=== PATIENT | female | born 1975 | race Caucasian/White ===

== ENCOUNTER 2020-03-08 10:33 | Emergency (ER) | payer BC, SELFPAY ==
[2020-03-08] VITALS (30 sets, daily range): BP systolic 110–171; BP diastolic 70–94; PULSE 69–121; RESP 10–27; O2SAT 96–100
--- NOTE | ~2020-03-08 | CT_ITS ---
EXAMINATION: CT abdomen pelvis w con EXAM DATE: 03/08/2020 13:15 INDICATION: Epigastric pain . Nausea vomiting diarrhea. TECHNIQUE: Spiral CT of the abdomen and pelvis was performed following intravenous injection of 100 m L Omnipaque 350. Axial, coronal and sagittal images were reviewed. The dose-length product (DLP) fo r this examination was 456.18 mGy-cm. The exposure was tailored according to patient size (auto mA e xposure control), and iterative reconstruction (ASIR) was used as additional dose reduction technique . Comparison is made to prior examination from 02/13/1970. FINDINGS: The liver, spleen, adrenal glands and pancreas are unremarkable. There are surgical clips in the gallbladder fossa. Some biliary duct dilation which is common finding following cholecystecto my. Portal and splenic veins are patent. Kidneys enhance symmetrically. Probable punctate left neph rolithiasis. There is no hydronephrosis. There is IUD which appears to be centrally located within the endometrium, expected position. The bladder is unremarkable. There is no retroperitoneal or pel howard lymphadenopathy. The appendix is normal. The stomach and small bowel are unremarkable. Moderate facet and transverse colonic wall edema. There is colonic fluid. Appearance consistent with colitis or enterocolitis. No f ree intraperitoneal gas. The heart is normal in size. There are no pericardial or pleural effusion s. The lung bases are unremarkable. There are no osteoblastic or osteolytic lesions identified. IMPRESSION: Colitis or enterocolitis. Reviewed, dictated and finalized at location B. [facility] [employer]ACEMENT SERVICES COUNSELOR IMPRESSION: Colitis or enterocolitis.
--- NOTE | 2020-03-08 10:37 | PC.NURSE ---
This pt making conversation with other pt's in waiting room. Pt complaining about the heat in the waiting room. Pt making remarks to other pt's that she is COVID negative. States she is going to be puking a lot .
--- NOTE | 2020-03-08 11:08 | ED.NAVMDI ---
HPI - Nausea/Vomiting/Diarrhea General Chief complaint: Nausea/Vomiting/Diarrhea Stated complaint: Vomiting Time Seen by Provider: 03/08/20 11:08 History of Present Illness HPI Narrative: Tayo limited by poor historian. 44 yo female w/ h/o RA, fibromyalgia presents to the ED for nausea and vomiting. . She reports that she has had nausea and vomiting for the past 5 days. This is associated with Epigastric abdominal pain. No radiation. She has never had this pain before. She was seen at [facility] yesterday and had lab work done. She also tested negative for COVID-19. She presents today because she is not feeling any better. She tried taking zofran today, but could not keep it down. Related Data Home Medications Medication Instructions Recorded Confirmed acetaminophen 325 mg tablet 325 mg PO Q6H PRN 01/14/19 biotin 10,000 mcg capsule mcg PO 01/14/19 diphenhydramine HCl 25 mg capsule 25 mg PO Q6H PRN 01/14/19 erenumab-aooe 70 mg/mL 70 mg SUB-Q MONTHLY 01/14/19 subcutaneous auto-injector glucosam 750 mg-chondroi 100 tablet PO 01/14/19 mg-hyalur 1.65 mg-CF borate 108 mg tablet levocetirizine 5 mg tablet 5 mg PO DAILY 01/14/19 multivitamin 1 tablet PO DAILY 01/14/19 raspberry ketone 100 mg capsule mg PO 01/14/19 promethazine 25 mg tablet 25 mg PO TID PRN 03/23/19 Allergies Allergy/AdvReac Type Severity Reaction Status Date / Time diphenhydramine Allergy Unknown STATED Verified 03/23/19 13:43 LIQUID CAUSES THROAT TO CLOSE, BUT CAN TAKE PILL FORM Review of Systems Review of Systems: All systems reviewed & are unremarkable except as noted in HPI and below Constitutional: Constitutional: Reports fatigue and Denies fever(s) Cardiovascular: Cardiovascular: Denies chest pain Respiratory: Respiratory: Denies dyspnea Gastrointestinal: Gastrointestinal: Reports abdominal pain, Denies diarrhea, Reports nausea and Reports vomiting Genitourinary: Genitourinary: Denies dysuria Musculoskeletal: Musculoskeletal: Denies back pain Neurologic: Reports dizziness PMFSH Past Medical History Medical History (Updated 03/08/20 @ 15:37 by Seferino Wang MD) Fibromyalgia Gallbladder disease H/O nephrolithotomy with removal of calculi Undifferentiated connective tissue disease Surgical History Surgical History H/O shoulder surgery Family History Family History Father Family history of cardiac disorder Social History Social History Smoking status: Never smoker Alcohol intake: current Exam Const: General: no acute distress and alert Orientation/consciousness: patient oriented x3 HENMT: Head: normal to inspection Resp: Effort & Inspection: normal respiratory effort Auscultation: clear to auscultation bilaterally Cardio: Rate: regular rate Rhythm: regular rhythm GI: Inspection: non-distended GI Palp: Yes Soft to palpation, Yes Tenderness to palpation present (GI) (diffusely), No Guarding due to palpation present (GI) and No Rebound tenderness present Skin: General skin exam: normal color Neuro: General: patient oriented x3, moves all extremities, no focal motor deficits and CN's II-XI intact bilaterally Speech: normal speech Extrem: General: normal to inspection Psych: Affect: Anxious affect present Course Vital Signs Vital signs: Vital Signs Pulse Rate 80 03/08/20 10:55 Respiratory Rate 22 H 03/08/20 10:55 Blood Pressure 147/74 H 03/08/20 10:55 Pulse Oximetry 100 03/08/20 10:55 Pulse Rate 79 03/08/20 17:29 Respiratory Rate 18 03/08/20 17:29 Blood Pressure 137/91 H 03/08/20 17:29 Pulse Oximetry 97 03/08/20 17:29 MDM - Nausea/Vomiting/Diarrhea Differential Diagnosis Differential diagnosis: Likely gastroenteritis, dehydration and other (IBS) Medica
--- NOTE | 2020-03-08 11:27 | PC.NURSE ---
upon entering patients room to do assessment patient c/o being in the er for 15 min and that she still didnt have an iv and no one cares how bad i feel . patient requesting water and stating that she is dying from dehydration
[2020-03-08 11:30] LABS: Basophils Percent Auto 0.1 % (0.2-1.2); Hematocrit 40.6 % (37.0-47.0); Hemoglobin 14.1 g/dL (12.0-15.0); Immature Granulocyte Absolute 0.06 K/mm3 (0.00-0.031); Immature Granulocyte Percent A 0.4 % (0-0.5); Lymphocytes Absolute Auto 0.46 K/mm3 (0.9-3.2); Lymphocytes Percent Auto 3.1 % (18.3-44.2); Mean Corpuscular HGB Conc 34.7 g/dl (32-36); Mean Corpuscular Hemoglobin 34.7 pg (26-34); Mean Platelet Volume 9.9 fl (7.4-10.4); Monocytes Absolute Auto 0.4 K/mm3 (0.1-0.6); Monocytes Percent Auto 2.5 % (2.6-8.5); Neutrophils Absolute Auto 14.1 K/mm3 (1.3-6.7); Neutrophils Percent Auto 93.9 % (45.5-73.1); Platelet Count Result 199 k/mm3 (150-375); Red Blood Count 4.06 M/mm3 (4.2-5.4); Red Cell Distribution Width 11.8 % (11.5-14.5)
[2020-03-08 11:42] LABS: Alanine Aminotransferase 26 U/L (4-35); Albumin Level 5.1 g/dL (3.5-5.1); Alkaline Phosphatase 68 U/L (38-126); Anion Gap 13 mmol/L (8-16); Aspartate Amino Transferase 32 U/L (14-36); Bilirubin,Total 0.4 mg/dL (0.2-1.3); Blood Urea Nitrogen 15 mg/dL (7-17); Carbon Dioxide 22 mmol/L (22-30); Chloride 105 mmol/L (98-107); Estimated Glomerular Filt Rate > 60; Glucose 120 mg/dL (65-105); Lipase 33 U/L (23-300); Potassium 3.4 mmol/L (3.4-5.0); Sodium 140 mmol/L (137-145)
[2020-03-08] MEDS: ONDANSETRON INJ 4 MG/2 ML VIAL IV PUSH (12:07)
[2020-03-08] MEDS: SODIUM CHLORIDE 0.9% IV 1,000 ML 999 ML IV CONT (12:08)
[2020-03-08] MEDS: ONDANSETRON INJ 4 MG/2 ML VIAL (12:54)
[2020-03-08 13:14] LABS: Add Urine Microscopic? YES; Appearance Urine Clear (Clear); Bilirubin Urine Negative (Negative); Blood Urine 2+ (Negative); Color Urine Yellow (Yellow); Glucose Urine UA Negative (Negative); Ketones Urine 2+ mg/dL (Negative); Leukocyte Esterase Ur Negative LEU/UL (Negative); Mucus Urine Few /lpf; Nitrate Urine Negative (Negative); Protein Urine 2+ mg/dL (Negative); Specific Grav Ur 1.024 (1.001-1.035); Squamous Epithelial Cell Urine Few /hpf (Few); Urobilinogen Urine Negative mg/dL (<2.0)
[2020-03-08] MEDS: DICYCLOMINE HCL INJ 20 MG/2 ML VIAL IM (14:39)
[2020-03-08] MEDS: metroNIDAZOLE 250 MG TABLET 500 MG PO (14:39)
[2020-03-08] MEDS: CIPROFLOXACIN 500 MG TAB PO (14:39)
== END 2020-03-08 17:31 | disposition home or self-care (01) ==
PROVIDERS: Emergency Provider Emergency Medicine; PCP Internal Medicine
DX: K52.9 Noninfective gastroenteritis and colitis, unspecified (principal); M06.9 Rheumatoid arthritis, unspecified; M79.7 Fibromyalgia
CPT/HCPCS: 36415; 74177; 80053; 81001; 81025; 83690; 85025; 96361; 96365; 96372; 96375; 96376; 99284; A9270; J0131; J0500; J2405; J7030; Q9967

== ENCOUNTER 2021-10-04 13:32 | Outpatient (CLI) | payer OTHER, SELFPAY ==
[2021-10-04 14:20] LABS: Alanine Aminotransferase 38 U/L (6-35); Albumin Level 4.2 g/dL (3.5-5.1); Alkaline Phosphatase 87 U/L (38-126); Anion Gap 8 mmol/L (8-16); Aspartate Amino Transferase 35 U/L (14-36); Bilirubin,Total 0.2 mg/dL (0.2-1.3); Blood Urea Nitrogen 13 mg/dL (7-17); Carbon Dioxide 33 mmol/L (22-30); Chloride 95 mmol/L (98-107); Estimated Glomerular Filt Rate > 60; Glucose 100 mg/dL (65-110); Magnesium 1.7 mg/dL (1.6-2.3); Sodium 136 mmol/L (137-145)
== END 2021-10-04 13:33 | disposition home or self-care (01) ==
PROVIDERS: PCP Internal Medicine
DX: M62.838 Other muscle spasm (principal)
CPT/HCPCS: 36415; 80053; 83735

== ENCOUNTER 2021-10-16 13:12 | Outpatient (CLI) | payer OTHER, SELFPAY ==
[2021-10-16 13:35] LABS: Sodium 134 mmol/L (137-145)
[2021-10-16 13:40] LABS: Anion Gap 6 mmol/L (8-16); Blood Urea Nitrogen 8 mg/dL (7-17); Calcium 9.9 mg/dL (8.4-10.2); Carbon Dioxide 30 mmol/L (22-30); Chloride 98 mmol/L (98-107); Estimated Glomerular Filt Rate > 60; Glucose 93 mg/dL (65-110); Potassium 3.4 mmol/L (3.4-5.0)
== END 2021-10-16 13:13 | disposition home or self-care (01) ==
PROVIDERS: PCP Internal Medicine; Visit Provider Internal Medicine
DX: E87.6 Hypokalemia (principal)
CPT/HCPCS: 36415; 80048

== ENCOUNTER 2022-05-18 08:41 | Outpatient (CLI) | payer OTHER, SELFPAY ==
--- NOTE | ~2022-05-18 | CT_ITS ---
CT of the Abdomen and Pelvis: Indication: Abdominal pain Technique: 2.5 mm axial scans were obtained through the abdomen and pelvis following intravenous adm inistration of 100 cc of Omnipaque 350. Dose reduction technique was used on this scan by utilizing a utomated exposure control and iterative reconstruction technique. The dose-length product (DLP) was 8 04.13 mGy-cm. COMPARISON: 03/08/2020 Findings: Scans through the lung bases are unremarkable. The liver, spleen, pancreas, adrenals and kidneys are within normal limits. Cholecystectomy clips pre sent. No evidence of aortic aneurysm. No lymphadenopathy. Possible wall thickening of the descending and sigmoid colon versus underdistention. No bowel obstruc tion. There is no evidence to suggest acute appendicitis. Images through the pelvis were performed. Urinary bladder unremarkable. IUD in place. No other adnexa l mass seen. Impression: Possible wall thickening of the descending and sigmoid colon versus underdistention. Correlate for in fectious/inflammatory colitis. IUD in place. Reviewed, dictated and finalized at location . Impression: Possible wall thickening of the descending and sigmoid colon versus underdisten tion. Correlate for infectious/inflammatory colitis. IUD in place.
== END 2022-05-18 08:42 ==
PROVIDERS: PCP Internal Medicine; Visit Provider Internal Medicine
DX: R10.9 Unspecified abdominal pain (principal); Z97.5 Presence of (intrauterine) contraceptive device
CPT/HCPCS: 74177; Q9967

== ENCOUNTER 2022-07-02 01:42 | Day surgery (SDC) | payer OTHER, SELFPAY ==
[2022-06-19 15:40] VITALS: BMI 31.8
--- NOTE | 2022-07-01 19:44 | PM.HPGS ---
History of Present Illness History of Present Illness Consent: Risks, benefits, and alternatives have been discussed and questions answered. Patient agrees to proceed with procedure. Chief complaint: neoplasm screening Narrative: Gaby Raymond is a 47 year old female referred for colon cancer screening. Review of Systems Review of Systems: All systems reviewed & are unremarkable except as noted in HPI and below PMFSH Past Medical History Medical History Bilateral hand pain Gallbladder disease H/O nephrolithotomy with removal of calculi Undifferentiated connective tissue disease Vitamin D deficiency Surgical History Surgical History H/O shoulder surgery Family History Family History Father Family history of cardiac disorder Social History Social History Smoking status: Never smoker Alcohol intake: current Substance use: current Substance use type: marijuana Last use: BEDTIME Living arrangements: with family Spiritual care concerns: No Meds Home Medications and Allergies Home Medications Medication Instructions Recorded Confirmed Type biotin 10,000 mcg capsule 10,000 mcg PO DAILY 01/14/19 06/19/22 History multivitamin 1 tablet PO DAILY 01/14/19 06/19/22 History duloxetine 60 mg capsule,delayed 60 mg PO BID #180 caps 04/26/20 06/19/22 Rx release naproxen sodium 220 mg tablet 220 mg PO BID PRN Pain 11/16/20 06/19/22 History (Aleve) acetaminophen 325 mg tablet 650 mg PO Q6H PRN Pain 06/19/22 06/19/22 History Allergies Allergy/AdvReac Type Severity Reaction Status Date / Time diphenhydramine Allergy Unknown STATED Verified 07/02/22 11:04 LIQUID CAUSES THROAT TO CLOSE, BUT CAN TAKE PILL FORM Exam Resp: Auscultation: clear to auscultation bilaterally Cardio: Rate: regular rate Rhythm: regular rhythm GI: GI Palp: Yes Soft to palpation and No Tenderness to palpation present (GI) Assessment and Plan Assessment and plan (1) Colon cancer screening: Code(s): Z12.11 - Encounter for screening for malignant neoplasm of colon Status: Acute Assessment and Plan: Colonoscopy with possible biopsy or polypectomy or cautery or injection of substances.
[2022-07-02 11:06] VITALS: BP 137/79; PULSE 74; RESP 18; TEMP 36.5; O2SAT 99
--- NOTE | 2022-07-02 11:07 | SUR.PREOP ---
Dr Magana aware patient has IUD- no orders for urine test.
[2022-07-02] MEDS: LACTATED RINGERS 1,000 ML 150 ML IV CONT (11:41)
--- NOTE | 2022-07-02 11:45 | P.PNAN_ITS ---
Anes - Initial Pre Proc Eval Procedure: Operation Date: 07/02/22 12:30 Proposed Procedures p Screening Colonoscopy - Yazan Rogers MD Date/Time: 07/02/22 11:45 Surgeon: Yazan Rogers MD Pre Op Diagnosis: neoplasm screening Patient Data Age: 47 Gender: F Height: 1.63 m Weight: 81.6 kg Last Vital Signs Temp 97.7 F 07/02/22 11:06 Pulse 74 07/02/22 11:06 Resp 18 07/02/22 11:06 BP 137/79 07/02/22 11:06 Pulse Ox 99 07/02/22 11:06 O2 Del Method Room Air 07/02/22 11:06 Allergies Allergy/AdvReac Type Severity Reaction Status Date / Time diphenhydramine Allergy Unknown STATED Verified 07/02/22 11:04 LIQUID CAUSES THROAT TO CLOSE, BUT CAN TAKE PILL FORM Home Medications Medication Instructions Recorded Confirmed Type biotin 10,000 mcg capsule 10,000 mcg PO DAILY 01/14/19 06/19/22 History multivitamin 1 tablet PO DAILY 01/14/19 06/19/22 History duloxetine 60 mg capsule,delayed 60 mg PO BID #180 caps 04/26/20 06/19/22 Rx release naproxen sodium 220 mg tablet 220 mg PO BID PRN Pain 11/16/20 06/19/22 History (Aleve) acetaminophen 325 mg tablet 650 mg PO Q6H PRN Pain 06/19/22 06/19/22 History Patient hx anesthesia problems: none Family hx anesthesia problems: none Results Review: All pre-operative results and documents have been reviewed as part of the pre- operative evaluation. [facility] Past Medical History Medical History Bilateral hand pain Gallbladder disease H/O nephrolithotomy with removal of calculi Undifferentiated connective tissue disease Vitamin D deficiency Surgical History Surgical History H/O shoulder surgery Family History Family History Father Family history of cardiac disorder Social History Social History Smoking status: Never smoker Alcohol intake: current Substance use: current Substance use type: marijuana Last use: BEDTIME Living arrangements: with family Spiritual care concerns: No Anes - Eval Final PreProcedure Day of Procedure 07/02/22 11:45 Patient weight: obese Heart: regular rate and rhythm Lungs: clear to auscultation Airway: Mallampati scale class II Neurological: alert and oriented Last oral intake: >/= 8 hours ASA classification: II Emergent: no Anesthetic plan: proceed Anesthesia type and monitoring: general GIVS and standard monitoring Results Review: All pre-operative results and documents have been reviewed as part of the pre- operative evaluation. Informed Consent: The patient's anesthetic plan and its attendant risks and benefits were discussed with the patient/family/POA. Questions were solicited and answers provided to the satisfaction of the patient/family/POA.
[2022-07-02 12:36] VITALS: BP 125/94; PULSE 78; RESP 15; O2SAT 97
[2022-07-02 12:46] VITALS: BP 128/79; PULSE 78; RESP 17; O2SAT 100
[2022-07-02 12:56] VITALS: BP 113/97; PULSE 80; RESP 20; O2SAT 100
[2022-07-02] MEDS: IBUPROFEN 400 MG TABLET 800 MG PO (13:04)
--- NOTE | 2022-07-02 13:06 | SUR.PHASEII ---
Patient requested Ibuprofen before being discharge. Reported this to Dr. Magana, he was okay with an order for one time dose of 800mg of ibuprofen
== END 2022-07-02 13:09 | disposition home or self-care (01) ==
PROVIDERS: PCP Internal Medicine; Visit Provider Internal Medicine Gastroenterology
PROC: 0DJD8ZZ Inspection of Lower Intestinal Tract, Via Natural or Artificial Opening Endoscopic (ICD-10-PCS; CPT 45378; principal; 2022-07-02 12:30)
DX: Z12.11 Encounter for screening for malignant neoplasm of colon (principal); F12.90 Cannabis use, unspecified, uncomplicated; E66.9 Obesity, unspecified; Z68.30 Body mass index [BMI] 30.0-30.9, adult
CPT/HCPCS: 45378; A9270; J2704; J7120

== ENCOUNTER 2022-09-03 13:04 | Outpatient (CLI) | payer OTHER, SELFPAY ==
[2022-09-03 13:25] LABS: Basophils Absolute Auto 0.1 K/mm3 (0.0-0.1); Basophils Percent Auto 0.4 % (0.2-1.2); Eosinophils Absolute Auto 0.2 K/mm3 (0-0.3); Eosinophils Percent Auto 0.9 % (0-4.4); Hematocrit 35.1 % (37.0-47.0); Hemoglobin 11.6 g/dL (12.0-15.0); Immature Granulocyte Absolute 0.13 K/mm3 (0.00-0.031); Immature Granulocyte Percent A 0.7 % (0-0.5); Lymphocytes Absolute Auto 2.43 K/mm3 (0.9-3.2); Lymphocytes Percent Auto 13.3 % (18.3-44.2); Mean Corpuscular Hemoglobin 34.3 pg (26-34); Mean Corpuscular Volume 103.8 fl (80-100); Mean Platelet Volume 9.7 fl (7.4-10.4); Monocytes Percent Auto 5.4 % (2.6-8.5); Neutrophils Absolute Auto 14.5 K/mm3 (1.3-6.7); Neutrophils Percent Auto 79.3 % (45.5-73.1); Platelet Count Result 156 k/mm3 (150-375); Red Blood Count 3.38 M/mm3 (4.2-5.4); White Blood Count 18.3 K/mm3 (4.5-10.0)
[2022-09-03 13:38] LABS: Rheumatoid Factor < 12.0 IU/ML (<12)
[2022-09-03 13:40] LABS: Alanine Aminotransferase 18 U/L (6-35); Albumin Level 4.1 g/dL (3.5-5.1); Alkaline Phosphatase 69 U/L (38-126); Anion Gap 2 mmol/L (8-16); Aspartate Amino Transferase 27 U/L (14-36); Bilirubin,Total 0.2 mg/dL (0.2-1.3); Blood Urea Nitrogen 15 mg/dL (7-17); CRP 0.7 mg/dL (<1.0); Calcium 8.8 mg/dL (8.4-10.2); Carbon Dioxide 30 mmol/L (22-30); Chloride 102 mmol/L (98-107); Estimated Glomerular Filt Rate > 60; Glucose 94 mg/dL (65-110); Potassium 3.8 mmol/L (3.4-5.0); Sodium 134 mmol/L (137-145)
== END 2022-09-03 13:05 | disposition home or self-care (01) ==
PROVIDERS: PCP Internal Medicine
DX: M25.50 Pain in unspecified joint (principal)
CPT/HCPCS: 36415; 80053; 85025; 86140; 86430

== ENCOUNTER → 2022-09-17 13:06 | Outpatient (CLI) | payer OTHER, SELFPAY ==
--- NOTE | ~2022-09-17 | XR_ITS ---
EXAMINATION: XR chest 2V 09/17/2022 13:44 INDICATION: Leukocytosis PROCEDURE: 2 view chest COMPARISON: 06/19/2014 FINDINGS: The lungs are clear. The cardiomediastinal silhouette is within normal limits. There are no pleural effusions. There is no pneumothorax suspected. IMPRESSION: 1: NO ACUTE CARDIOPULMONARY DISEASE. Reviewed, dictated and finalized at location A.
== END ==
PROVIDERS: PCP Internal Medicine
DX: D72.829 Elevated white blood cell count, unspecified (principal)
CPT/HCPCS: 71046

== ENCOUNTER 2022-10-28 15:37 | Emergency (ER) | payer OTHER, SELFPAY ==
--- NOTE | ~2022-10-28 | XR_ITS ---
Clinical Indication: Weakness PA and lateral views of the chest: Comparison: 09/17/2022 Findings: The lungs are clear, without evidence of focal consolidation or pleural effusion. Cardiome diastinal silhouette is within normal limits. Bones and soft tissues are unremarkable. Impression: Normal chest. Reviewed, dictated and finalized at location . Impression: Normal chest.
[2022-10-28 15:38] VITALS: BP 123/62; PULSE 73; RESP 20; TEMP 36.6; O2SAT 100
[2022-10-28 17:36] LABS: Basophils Absolute Auto 0.1 K/mm3 (0.0-0.1); Basophils Percent Auto 0.3 % (0.2-1.2); Eosinophils Absolute Auto 0.1 K/mm3 (0-0.3); Eosinophils Percent Auto 0.4 % (0-4.4); Hematocrit 40.1 % (37.0-47.0); Hemoglobin 13.2 g/dL (12.0-15.0); Immature Granulocyte Absolute 0.15 K/mm3 (0.00-0.031); Immature Granulocyte Percent A 0.6 % (0-0.5); Lymphocytes Absolute Auto 1.75 K/mm3 (0.9-3.2); Lymphocytes Percent Auto 6.8 % (18.3-44.2); Mean Corpuscular HGB Conc 32.9 g/dl (32-36); Mean Corpuscular Hemoglobin 34.6 pg (26-34); Mean Platelet Volume 9.9 fl (7.4-10.4); Monocytes Absolute Auto 1.2 K/mm3 (0.1-0.6); Monocytes Percent Auto 4.5 % (2.6-8.5); Neutrophils Absolute Auto 22.6 K/mm3 (1.3-6.7); Neutrophils Percent Auto 87.4 % (45.5-73.1); Platelet Count Result 183 k/mm3 (150-375); Red Blood Count 3.82 M/mm3 (4.2-5.4); Red Cell Distribution Width 13.5 % (11.5-14.5); White Blood Count 25.8 K/mm3 (4.5-10.0)
[2022-10-28 17:43] LABS: Appearance Urine Clear (Clear); Bacteria Urine None Seen /hpf; Bilirubin Urine Negative (Negative); Color Urine Yellow (Yellow); Glucose Urine UA Negative (Negative); Ketones Urine Negative (Negative); Leukocyte Esterase Ur Trace LEU/UL (Negative); Nitrate Urine Negative (Negative); Non Pathogenic Casts 0-2; Protein Urine Negative (Negative); Specific Grav Ur 1.019 (1.001-1.035); Squamous Epithelial Cell Urine Few /hpf (Few); WBC Urine 0-5 /hpf; pH Urine 7.5 (5.0-9.0)
[2022-10-28 17:48] LABS: Alanine Aminotransferase 26 U/L (6-35); Albumin Level 4.6 g/dL (3.5-5.1); Alkaline Phosphatase 85 U/L (38-126); Anion Gap 12 mmol/L (8-16); Aspartate Amino Transferase 40 U/L (14-36); Bilirubin,Total 0.3 mg/dL (0.2-1.3); Blood Urea Nitrogen 10 mg/dL (7-17); Calcium 8.9 mg/dL (8.4-10.2); Carbon Dioxide 28 mmol/L (22-30); Chloride 98 mmol/L (98-107); Estimated CRCL calculation 80 ml/min; Estimated Glomerular Filt Rate > 60; Glucose 96 mg/dL (65-110); Sodium 138 mmol/L (137-145)
[2022-10-28 17:49] LABS: Add Urine Microscopic? YES
--- NOTE | 2022-10-28 18:01 | ECG_ITS ---
Measurements Intervals [place] Rate: 65 P: 36 [place]: 152 QRS: 62 QRSD: 76 T: 85 QT: 411 QTc: 430 Interpretive Statements SINUS RHYTHM BASELINE ARTIFACT- I, III, AVL NORMAL ECG NO PREVIOUS ECG AVAILABLE FOR COMPARISON Electronically Signed On 10-28-2022 20:56:29 CDT by Thompson Mccartney D.O.
--- NOTE | 2022-10-28 18:02 | ED.GENADULT ---
HPI - General Adult General Chief complaint: Unspecified Stated complaint: unable to move extermities in heat Time Seen by Provider: 10/28/22 17:24 History of Present Illness HPI narrative: 47-year-old female with a history of hypokalemia reports for evaluation via EMS from the [facility] for muscle spasms and concern for dehydration and low potassium. [place] 2 hours when she began to feel lightheaded and dehydrated. She said she started to hyperventilate and had carpopedal spasms which has since resolved. She is now only reporting generalized fatigue and weakness and feels like her muscles are tired and achy. She is also reporting numbness and tingling to all extremities. She denies chest pain or shortness of breath, palpitations, syncope, headache or injury, vision changes, focal weakness, difficulty talking or walking, nausea or vomiting, abdominal pain. Patient states she takes potassium daily but did not take it today. Related Data Home Medications Medication Instructions Recorded Confirmed biotin 10,000 mcg capsule 10,000 mcg PO DAILY 01/14/19 06/19/22 multivitamin 1 tablet PO DAILY 01/14/19 06/19/22 naproxen sodium 220 mg tablet 220 mg PO BID PRN Pain 11/16/20 06/19/22 (Aleve) acetaminophen 325 mg tablet 650 mg PO Q6H PRN Pain 06/19/22 06/19/22 Allergies Allergy/AdvReac Type Severity Reaction Status Date / Time diphenhydramine Allergy Unknown STATED Verified 10/28/22 15:45 LIQUID CAUSES THROAT TO CLOSE, BUT CAN TAKE PILL FORM Review of Systems Review of Systems: CONSTITUTIONAL: Denies fever, chills EYES: Denies visual changes, redness, or discharge. ENT: Denies rhinorrhea, congestion, sore throat, or otalgia. CARDIOVASCULAR: Denies chest pain, palpitations, or edema. RESPIRATORY: Denies cough or dyspnea. GASTROINTESTINAL: Denies abdominal pain, nausea, vomiting, or diarrhea. GENITOURINARY: Denies dysuria or hematuria. SKIN: Denies rash or itching. MUSCULOSKELETAL: See HPI NEUROLOGIC: See HPI PSYCHIATRIC: Denies anxiety or depression. [facility] Past Medical History Medical History Bilateral hand pain Gallbladder disease H/O nephrolithotomy with removal of calculi Undifferentiated connective tissue disease Vitamin D deficiency Surgical History Surgical History H/O shoulder surgery Family History Family History Father Family history of cardiac disorder Social History Social History Smoking status: Never smoker Alcohol intake: current Substance use: current Substance use type: marijuana Last use: BEDTIME Living arrangements: with family Spiritual care concerns: No Exam Narrative: GENERAL: Well-appearing, in no acute distress. Patient resting comfortably in exam bed. She is pleasant and conversational. HEAD: Normocephalic EYES: PERRLA, EOMI ENT: Nares clear. Mucous membranes tacky. Oropharynx without tonsillar hypertrophy exudate or other lesions. NECK: Supple. CHEST: No respiratory distress. Clear to auscultation, no adventitious breath sounds. HEART: Regular rate and rhythm. No murmur heard. Normal peripheral pulses. ABDOMEN: Soft, nontender, normal active bowel sounds. No CVA tenderness EXTREMITIES: Normal range of motion. No edema. SKIN: Warm, dry, no rash. NEURO: No focal deficits. Alert and oriented x3. Cranial nerves II through XII intact. Strength 5/5 in BUE and BLE. Sensation intact throughout. No pronator drift. Normal sveial-up-hjkv. PSYCH: Normal mood and affect. Course Vital Signs Vital signs: Vital Signs Temperature 97.9 F 10/28/22 15:38 Pulse Rate 73 10/28/22 15:38 Respiratory Rate 20 10/28/22 15:38 Blood Pressure 123/62
[2022-10-28] MEDS: SODIUM CHLORIDE 0.9% IV 1,000 ML 999 ML IV CONT ×2 (18:15→19:46)
[2022-10-28] MEDS: POTASSIUM CHLORIDE 20 MEQ ER TABLET 40 MEQ PO (18:27)
[2022-10-28 19:19] LABS: Lactic Acid Reflex 0.7 mmol/L (0.7-2.0); Magnesium 2.1 mg/dL (1.6-2.3); Phosphorus 3.2 mg/dL (2.5-4.5)
[2022-10-28 19:46] LABS: Influenza A QL RT-PCR Negative (Negative); Influenza B QL RT-PCR Negative (Negative); SARS-CoV-2 RNA PCR Negative (Negative)
[2022-10-28 20:23] LABS: CRP 0.7 mg/dL (<1.0)
[2022-10-28 20:55] VITALS: BP 121/76; PULSE 77; RESP 16; O2SAT 100
== END 2022-10-28 20:58 | disposition home or self-care (01) ==
PROVIDERS: Emergency Provider Physician Assistant; PCP Internal Medicine
DX: E87.6 Hypokalemia (principal); F45.8 Other somatoform disorders; E55.9 Vitamin D deficiency, unspecified; K82.9 Disease of gallbladder, unspecified; M35.9 Systemic involvement of connective tissue, unspecified; Z87.442 Personal history of urinary calculi; Z20.822 Contact with and (suspected) exposure to COVID-19
CPT/HCPCS: 36415; 71046; 80053; 81001; 81025; 83605; 83735; 84100; 85025; 86140; 87636; 93005; 96360; 99283; A9270; J7030

== ENCOUNTER 2022-12-18 14:32 | Outpatient (CLI) | payer OTHER, SELFPAY ==
[2022-12-18 14:50] LABS: Hematocrit 37.2 % (37.0-47.0); Hemoglobin 12.6 g/dL (12.0-15.0); Mean Corpuscular HGB Conc 33.9 g/dl (32-36); Mean Corpuscular Hemoglobin 35.1 pg (26-34); Mean Corpuscular Volume 103.6 fl (80-100); Mean Platelet Volume 9.3 fl (7.4-10.4); Platelet Count Result 183 k/mm3 (150-375); Red Blood Count 3.59 M/mm3 (4.2-5.4); Red Cell Distribution Width 12.4 % (11.5-14.5); White Blood Count 18.1 K/mm3 (4.5-10.0)
[2022-12-18 14:59] LABS: Band Neutrophils Percent 3 % (0-6); Lymphocytes Absolute Manual 2.89 K/mm3 (1.1-4.5); Monocytes Percent Manual 5 % (3-9); Neutrophils Absolute Manual 14.29 K/mm3 (1.7-7.2); Neutrophils Percent Manual 76 % (46-73); Platelet Estimate Adequate (Adequate); Schistocytes None Seen (NORMAL); Total Cells Counted 100
[2022-12-18 17:11] LABS: Erythrocyte Sedimentation Rate 17 mm/hr (0-20)
[2022-12-18 17:18] LABS: Alanine Aminotransferase 20 U/L (6-35); Albumin Level 4.7 g/dL (3.5-5.1); Alkaline Phosphatase 86 U/L (38-126); Anion Gap 7 mmol/L (8-16); Aspartate Amino Transferase 31 U/L (14-36); Bilirubin,Total 0.4 mg/dL (0.2-1.3); Blood Urea Nitrogen 14 mg/dL (7-17); CRP 0.6 mg/dL (<1.0); Calcium 9.4 mg/dL (8.4-10.2); Carbon Dioxide 33 mmol/L (22-30); Chloride 97 mmol/L (98-107); Estimated Glomerular Filt Rate > 60; Glucose 89 mg/dL (65-110); Potassium 3.4 mmol/L (3.4-5.0); Sodium 137 mmol/L (137-145)
== END 2022-12-18 14:33 | disposition home or self-care (01) ==
LOC: ANHLAB 14:35
PROVIDERS: PCP Internal Medicine; Visit Provider Internal Medicine Hematology & Oncology
DX: D72.829 Elevated white blood cell count, unspecified (principal)
CPT/HCPCS: 36415; 80053; 85025; 85652; 86140; 88184

== ENCOUNTER 2023-04-17 13:40 | Outpatient (CLI) | payer OTHER, SELFPAY ==
[2023-04-17 13:53] LABS: Basophils Absolute Auto 0.1 K/mm3 (0.0-0.1); Basophils Percent Auto 0.4 % (0.2-1.2); Eosinophils Absolute Auto 0.2 K/mm3 (0-0.3); Eosinophils Percent Auto 1.2 % (0-4.4); Hematocrit 35.6 % (37.0-47.0); Hemoglobin 12.1 g/dL (12.0-15.0); Immature Granulocyte Absolute 0.03 K/mm3 (0.00-0.031); Immature Granulocyte Percent A 0.2 % (0-0.5); Lymphocytes Absolute Auto 2.46 K/mm3 (0.9-3.2); Lymphocytes Percent Auto 18.5 % (18.3-44.2); Mean Corpuscular Hemoglobin 34.2 pg (26-34); Mean Corpuscular Volume 100.6 fl (80-100); Mean Platelet Volume 9.6 fl (7.4-10.4); Monocytes Absolute Auto 0.7 K/mm3 (0.1-0.6); Neutrophils Absolute Auto 9.9 K/mm3 (1.3-6.7); Neutrophils Percent Auto 74.7 % (45.5-73.1); Platelet Count Result 179 k/mm3 (150-375); Red Blood Count 3.54 M/mm3 (4.2-5.4); White Blood Count 13.3 K/mm3 (4.5-10.0)
== END 2023-04-17 13:41 | disposition home or self-care (01) ==
LOC: ANHLAB 13:42
PROVIDERS: PCP Internal Medicine; Visit Provider Internal Medicine Hematology & Oncology
DX: D72.829 Elevated white blood cell count, unspecified (principal)
CPT/HCPCS: 36415; 85025

== ENCOUNTER 2023-04-29 10:01 | Outpatient (CLI) | payer OTHER, SELFPAY ==
[2023-04-29 11:15] LABS: Basophils Absolute Auto 0.1 K/mm3 (0.0-0.1); Basophils Percent Auto 0.5 % (0.2-1.2); Eosinophils Absolute Auto 0.1 K/mm3 (0-0.3); Eosinophils Percent Auto 0.4 % (0-4.4); Hemoglobin 12.4 g/dL (12.0-15.0); Immature Granulocyte Absolute 0.06 K/mm3 (0.00-0.031); Immature Granulocyte Percent A 0.5 % (0-0.5); Lymphocytes Absolute Auto 2.01 K/mm3 (0.9-3.2); Lymphocytes Percent Auto 15.9 % (18.3-44.2); Mean Corpuscular HGB Conc 32.6 g/dl (32-36); Mean Corpuscular Hemoglobin 33.6 pg (26-34); Mean Platelet Volume 9.9 fl (7.4-10.4); Monocytes Absolute Auto 0.5 K/mm3 (0.1-0.6); Monocytes Percent Auto 3.9 % (2.6-8.5); Neutrophils Percent Auto 78.8 % (45.5-73.1); Platelet Count Result 195 k/mm3 (150-375); Red Blood Count 3.69 M/mm3 (4.2-5.4); Red Cell Distribution Width 12.2 % (11.5-14.5); White Blood Count 12.6 K/mm3 (4.5-10.0)
[2023-04-29 11:30] LABS: Rheumatoid Factor < 12.0 IU/ML (<12)
[2023-04-29 11:31] LABS: CRP < 0.5 mg/dL (<1.0); Potassium 3.3 mmol/L (3.4-5.0)
[2023-04-29 12:13] LABS: Iron 89 ug/dL (37-170)
[2023-04-29 12:24] LABS: Percent Iron Saturation 31 % (20-50)
[2023-04-29 12:33] LABS: Folic Acid 12.6 ng/mL (2.76->20)
== END 2023-04-29 10:02 | disposition home or self-care (01) ==
PROVIDERS: PCP Internal Medicine; Visit Provider Nurse Practitioner Adult Health
DX: D72.829 Elevated white blood cell count, unspecified (principal); M25.50 Pain in unspecified joint; E87.6 Hypokalemia
CPT/HCPCS: 36415; 82607; 82728; 82746; 83540; 83550; 84132; 85025; 86140; 86430

== ENCOUNTER 2023-05-20 14:22 | Outpatient (CLI) | payer OTHER, SELFPAY ==
--- NOTE | ~2023-05-20 | US_ITS ---
EXAMINATION: US pelvic complete DATE: 05/20/2023 14:45 INDICATION: Right lower quadrant pain TECHNIQUE: Multiple transabdominal sonographic images of the pelvis were obtained. COMPARISON: CT, 05/18/2022 FINDINGS: The uterus measures 6.8 x 2.3 x 3.4 cm. The endometrial complex measures 4 mm. An IUD appea rs to be in expected position. The right ovary measures 2.3 x 1.9 x 2.4 cm. The left ovary measures 6 .1 x 3.5 x 4.9 cm and contains cysts measuring 3.2 cm and 1.9 cm. There is normal vascular flow in th e ovaries. There is no free fluid in the pelvis. IMPRESSION: 1. No sonographic correlate for the patient's symptoms. Reviewed, dictated and finalized at location F.
== END 2023-05-20 14:23 ==
PROVIDERS: PCP Nurse Practitioner; Visit Provider Nurse Practitioner
DX: R19.09 Other intra-abdominal and pelvic swelling, mass and lump (principal)
CPT/HCPCS: 76856

== ENCOUNTER 2023-09-10 06:07 | Emergency (ER) | payer OTHER, SELFPAY ==
--- NOTE | ~2023-09-10 | XR_ITS ---
Left foot Technique: AP, oblique, and lateral views were obtained. Clinical History: Injury Findings: No acute fracture or dislocation is seen. Osseous alignment is anatomic. Joint spaces are p reserved without erosive or degenerative change. Soft tissues are unremarkable. Impression: Unremarkable left foot radiographs. Reviewed, dictated and finalized at location . Impression: Unremarkable left foot radiographs.
[2023-09-10 06:09] VITALS: BP 124/86; PULSE 86; RESP 15; TEMP 36.4; O2SAT 100
--- NOTE | 2023-09-10 06:51 | ED.GENADULT ---
HPI - General Adult General Chief complaint: Extremity Injury, Lower Stated complaint: left foot pain Time Seen by Provider: 09/10/23 06:42 History of Present Illness HPI narrative: This is a 48-year-old female with history of fibromyalgia presenting with left foot pain. Patient says that she squatted down work and felt a popping sensation at the base of her 2nd toe on the left foot. She has been able ambulate although she does have some pain. She took to the with minimal relief that is her daily pain management for fibromyalgia. Patient denies weakness or loss of sensation Related Data Home Medications Medication Instructions Recorded Confirmed biotin 10,000 mcg capsule 10,000 mcg PO DAILY 01/14/19 06/19/22 multivitamin 1 tablet PO DAILY 01/14/19 06/19/22 naproxen sodium 220 mg tablet 220 mg PO BID PRN Pain 11/16/20 06/19/22 (Aleve) acetaminophen 325 mg tablet 650 mg PO Q6H PRN Pain 06/19/22 06/19/22 Allergies Allergy/AdvReac Type Severity Reaction Status Date / Time diphenhydramine Allergy Unknown STATED Verified 09/10/23 06:32 LIQUID CAUSES THROAT TO CLOSE, BUT CAN TAKE PILL FORM PMFSH Past Medical History Medical History Bilateral hand pain Gallbladder disease H/O nephrolithotomy with removal of calculi Undifferentiated connective tissue disease Vitamin D deficiency Surgical History Surgical History H/O shoulder surgery Family History Family History Father Family history of cardiac disorder Social History Social History Smoking status: Never smoker Alcohol intake: current Substance use: current Substance use type: marijuana Last use: BEDTIME Living arrangements: with family Spiritual care concerns: No Exam Narrative: APPEARANCE: No apparent distress. Head: atraumatic. EYES: EOMI, NOSE: Atraumatic NECK: Trachea midline RESPIRATORY: No increased rate of breathing CARDIOVASCULAR: RRR, ABDOMINAL: Non-distended MUSCULOSKELETAl: Focal exam of the left foot revealed minor swelling over base the 2nd toe on dorsal aspect of foot. No erythema bruising skin changes. Neurovascularly intact. NEURO: Alert. Moving 4/4 extremities SKIN:: Warm, dry. Normal color PSYCHIATRIC: Normal affect Course Vital Signs Vital signs: Vital Signs Temperature 97.6 F 09/10/23 06:09 Pulse Rate 86 09/10/23 06:09 Respiratory Rate 15 09/10/23 06:09 Blood Pressure 124/86 09/10/23 06:09 Pulse Oximetry 100 09/10/23 06:09 Oxygen Delivery Room Air 09/10/23 06:09 Temperature 97.6 F 09/10/23 06:09 Pulse Rate 86 09/10/23 06:09 Respiratory Rate 15 09/10/23 06:09 Blood Pressure 124/86 09/10/23 06:09 Pulse Oximetry 100 09/10/23 06:09 Oxygen Delivery Room Air 09/10/23 06:09 Medical Decision Making MDM Narrative Medical decision making narrative: -Course: 48-year-old female fibromyalgia presenting with pain. X-rays negative fracture. Patient was treated with Tylenol Robaxin and discharged with Podiatry follow-up. Given return precautions. 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
[2023-09-10] MEDS: ACETAMINOPHEN 500 MG TABLET 1000 MG PO (07:14)
[2023-09-10 07:22] VITALS: BP 127/99; PULSE 82; RESP 15; TEMP 36.4; O2SAT 100
== END 2023-09-10 07:25 | disposition home or self-care (01) ==
PROVIDERS: Emergency Provider Emergency Medicine; PCP Nurse Practitioner
DX: M79.672 Pain in left foot (principal)
CPT/HCPCS: 73630; 99283; A9270

== ENCOUNTER 2023-09-13 14:39 | Outpatient (CLI) | payer OTHER, SELFPAY ==
--- NOTE | ~2023-09-13 | MM_ITS ---
EXAMINATION: MM screening bernard BI w edith HISTORY: Screening TECHNIQUE: Craniocaudal and mediolateral oblique 3-D tomosynthesis images were obtained and synthetic 2-D images were generated. CAD analysis was submitted and interpreted. COMPARISON: 11/12/2027 BREAST PARENCHYMAL COMPOSITION: Dense: The breasts are heterogeneously dense, which may obscure small masses FINDINGS: There is global asymmetry centered in the upper outer quadrant of the right breast which villa s progressed since prior examination. The left breast is stable without evidence for malignancy. IMPRESSION: 1. Global asymmetry centered in the upper outer quadrant of the right breast. 2. Additional mammographic views and possible breast ultrasound are recommended. BI-RADS Category 0: Incomplete: Needs additional imaging evaluation. Reviewed, dictated and finalized at location B. IMPRESSION: 1. Global asymmetry centered in the upper outer quadrant of the right breast. 2. Additional mammographic views and possible breast ultrasound are recommended . BI-RADS Category 0: Incomplete: Needs additional imaging evaluation.
== END 2023-09-13 14:40 ==
LOC: MICIMG 14:40
PROVIDERS: PCP Obstetrics & Gynecology Gynecology; Visit Provider Obstetrics & Gynecology Gynecology
DX: Z12.31 Encounter for screening mammogram for malignant neoplasm of breast (principal); R92.8 Other abnormal and inconclusive findings on diagnostic imaging of breast
CPT/HCPCS: 77063; 77067

== ENCOUNTER 2023-10-16 13:01 | Outpatient (CLI) | payer OTHER, SELFPAY ==
[2023-10-16 13:11] LABS: Basophils Absolute Auto 0.1 K/mm3 (0.0-0.1); Basophils Percent Auto 0.5 % (0.2-1.2); Eosinophils Absolute Auto 0.1 K/mm3 (0-0.3); Eosinophils Percent Auto 0.8 % (0-4.4); Hematocrit 37.8 % (37.0-47.0); Hemoglobin 12.6 g/dL (12.0-15.0); Immature Granulocyte Absolute 0.02 K/mm3 (0.00-0.031); Immature Granulocyte Percent A 0.2 % (0-0.5); Lymphocytes Absolute Auto 1.75 K/mm3 (0.9-3.2); Lymphocytes Percent Auto 17.2 % (18.3-44.2); Mean Corpuscular HGB Conc 33.3 g/dl (32-36); Mean Corpuscular Hemoglobin 34.1 pg (26-34); Mean Corpuscular Volume 102.4 fl (80-100); Mean Platelet Volume 9.4 fl (7.4-10.4); Monocytes Absolute Auto 0.6 K/mm3 (0.1-0.6); Monocytes Percent Auto 5.7 % (2.6-8.5); Neutrophils Absolute Auto 7.7 K/mm3 (1.3-6.7); Neutrophils Percent Auto 75.6 % (45.5-73.1); Platelet Count Result 164 k/mm3 (150-375); Red Blood Count 3.69 M/mm3 (4.2-5.4); Red Cell Distribution Width 12.6 % (11.5-14.5); White Blood Count 10.2 K/mm3 (4.5-10.0)
== END 2023-10-16 13:02 | disposition home or self-care (01) ==
LOC: ANHLAB 13:02
PROVIDERS: PCP Obstetrics & Gynecology Gynecology; Visit Provider Internal Medicine Hematology & Oncology
DX: D72.829 Elevated white blood cell count, unspecified (principal)
CPT/HCPCS: 36415; 85025

== ENCOUNTER 2023-11-11 07:53 | Outpatient (CLI) | payer OTHER, SELFPAY ==
--- NOTE | ~2023-11-11 | MM_ITS ---
EXAMINATION: MM diagnostic bernard RT w edith HISTORY: Right breast asymmetry TECHNIQUE: Additional 3-D tomosynthesis images of the right breast were performed and synthetic 2-D i mages were generated. CAD analysis was submitted and interpreted. COMPARISON: 09/13/2023, 11/11/2017 BREAST PARENCHYMAL COMPOSITION:Dense: The breasts are heterogeneously dense, which may obscure small masses. FINDINGS: The area of asymmetry at the upper, outer right breast demonstrates effacement with spot co mpression. No persistent mass lesion or suspicious distortion are identified. No suspicious microcalc ification. IMPRESSION: No mammographic evidence for malignancy. BI-RADS Category 1: Negative Reviewed, dictated and finalized at location .
== END 2023-11-11 07:54 | disposition home or self-care (01) ==
LOC: MICIMG 07:53
PROVIDERS: PCP Obstetrics & Gynecology Gynecology; Visit Provider Obstetrics & Gynecology Gynecology
DX: R92.8 Other abnormal and inconclusive findings on diagnostic imaging of breast (principal)
CPT/HCPCS: 77061; 77065; G0279

== ENCOUNTER 2024-10-20 12:38 | Outpatient (CLI) | payer OTHER, SELFPAY ==
--- OUTSIDE RECORDS SUMMARY | 2024-10-20 12:41 | XMS_ITS | Clinical Summary ---
Author Organization [employer] [address] - [address] [place] [address] Phone Care Team Providers Care Carbon Paper Machine Operator Name Role Phone Pearl Valera MD Primary Care Provider [phone] Allergies Active Allergy Reactions Criticality Noted Date Comments Diphenhydramine Anaphylaxis High 10/07/2016 Throat swells Medications INTRAUTERINE DEVICE, IUD, INTRAUTERINE by Intrauterine route. Active albuterol sulfate 90 mcg/Actuation inhalerIndicati ons:Encounter for routine adult health examination with abnormal findings,Mild intermittent asthma, unspecified whether complicated Take 2 Puffs by inhalation every 6 hours as needed for Shortness of Breath. 18 Gram 3 01/12/20 21 Active magnesium oxide 200 mg magnesium Tablet, ChewableIndicat ions:Chronic constipation Take 100-200 mg by mouth daily. For constipation. 01/16/20 23 Active levocetirizine (Xyzal) 5 mg tablet Take 5 mg by mouth daily at bedtime. Active ergocalciferol (VITAMIN D2) 50,000 unit capsuleIndicati ons:Vitamin D deficiency Take 1 Capsule (50,000 Units) by mouth every 7 days. 12 Capsule 05/20/19 24 Active melatonin 5 mg Tablet Take 10 mg by mouth. Active fluticasone propionate (FLONASE) 50 mcg/spray [place], Suspension nasal inhaler Administer 2 Sprays in each nostril daily. 32 Gram 02/10/20 24 Active potassium chloride (KLOR-CON M20) 20 mEq Extended Release tabletIndicatio ns:Hypokalemia Take 1 Tablet (20 mEq) by mouth daily. 90 Tablet 03/09/19 25 Active cyclobenzaprine (FLEXERIL) 10 mg tabletIndicatio ns:Fibromyalgia Take 1 Tablet (10 mg) by mouth nightly as needed for Discomfort or Pain. 30 Tablet 04/28/19 25 Active famotidine (PEPCID) 20 mg tabletIndicatio ns:Gastroesopha geal reflux disease, unspecified whether esophagitis present Take 1 Tablet (20 mg) by mouth daily. 04/28/19 25 Active triamterene-hyd roCHLOROthiazid e (MAXZIDE 25) 37.5-25 mg tabletIndicatio ns:Edema of lower extremity,Hypok alemia TAKE 1 TABLET BY MOUTH EVERY DAY IN THE MORNING 90 Tablet 1 08/04/19 25 Active DULoxetine (CYMBALTA) 30 mg Capsule, Delayed Release(E.C.)In dications:Fibro myalgia TAKE 1 CAPSULE BY MOUTH EVERY DAY WITH DULOXETINE 60MG CAPSULE 90 Capsule 09/12/19 25 Active DULoxetine (CYMBALTA) 60 mg Capsule, Delayed Release(E.C.)In dications:Fibro myalgia TAKE 1 CAPSULE BY MOUTH DAILY IN THE MORNING. TAKE IN ADDITION TO 30 MG CAPSULE 90 Capsule 09/22/19 25 Active DULoxetine (CYMBALTA) 60 mg Capsule, Delayed Release(E.C.)In dications:Fibro myalgia Take 1 Capsule (60 mg) by mouth daily in the morning. Take in addition to 30 mg tablet. 90 Capsule 06/23/19 25 2024 Discontinued Active Problems Problem Noted Date Diagnosed Date Leukocytosis (leucocytosis) 09/14/2022 Amenorrhea 08/20/2022 Disorder of skin 08/20/2022 Asthma 07/09/2022 Gastroesophageal reflux disease 07/09/2022 Insomnia 07/09/2022 Fibromyalgia 07/09/2022 Hypokalemia 09/26/2021 Essential hypertension 08/15/2021 Chronic constipation 07/12/2021 Edema of lower extremity 07/12/2021 Resolved Problems Problem Noted Date Diagnosed Date Resolved Date Pain in wrist 08/20/2022 01/15/2023 COVID-19 09/26/2021 09/13/2022 Spasm of muscle 09/22/2021 11/06/2022 Edema 08/15/2021 09/13/2022 Encounters Date Type Department Care Team Description 10/19/2024 Orders Only [facility] - [facility] [address] [place] [id number] Juan A Ly MD Leukocytosis, unspecified type (Primary Dx) 10/06/2024 External Device Data STL ABSTRACTION Provider, Abstract 09/21/2024 Refill [facility] [employer] [place] [address] [place] [address] Zakia Charles, ANP Fibromyalgia 09/11/2024 Refill [facility] [employer] [facility] [address] [place] [address] Pearl Valera MD Fibromyalgia 09/09/2024 External Device Data STL ABSTRACTION Provider, Abstract 09/09/2024 External Device Data STL ABSTRACTION Provider, Abstract 08/18/2024 External Device Data STL ABSTRACTION Provider, Abstract 08/12/2024 External Device Data STL ABSTRACTION Provider, Abstract 08/03/2024 Refill [facility] [employer] [address] [place] [address] Pearl Valera MD Edema of lower extremity; Hypokalemia from Last 3 Months Immunizations Immunization Administration Dates Next Due (ADACEL/BOOSTRIX)(10 YR UP) TDAP VACCINE, 0.5ML, IM 10/03/2021 (PFIZER)(12 YR UP) COVID-19 VACCINE - EMERGENCY USE AUTHORIZATION, MRNA, [id number](PF) 30 MCG/0.3 ML IM SUSP 12/23/2020 Family History Medical History Relation Name Comments Heart defect Father Lung Cancer Maternal Grandfather Stwart Lung Cancer Maternal Grandmother Blanca Aneurysm Mother Cancer Paternal Grandfather Shay Heart Disease Paternal Grandmother Fara Mariaelena Kidney Disease Paternal Grandmother Fara Rheumatoid Arthritis Sister SLE Sister No Known Problems Son Relation Name Status Comments Father Alive Maternal Grandfather Stwart Maternal Grandmother Blanca Mother Alive Paternal Grandfather Shay Paternal Grandmother Granny Alive Sister Alive Son Alive Social History Tobacco Use Types Packs/Day Years Used Date Smoking Tobacco: Never Smokeless Tobacco: Never Tobacco Cessation:Counseling Given: Not Answered Alcohol Use Standard Drinks/Week Comments Not Currently 0 (1 standard drink = 0.6 oz pur e alcohol) I rarely drink Comments No Sex and Gender Information Value Date Recorded Sex Assigned at Not on file Legal Sex Female 11:00 AM SHEAR SCRAPMAN Gender Identity Not on file Sexual Orientation Not on file Last Filed Vital Signs Vital Sign Reading Time Taken Comments Blood Pressure 136/84 04/27/2024 7:26 AM SHEAR SCRAPMAN Pulse 91 04/27/2024 7:26 AM SHEAR SCRAPMAN Temperature 36.2 C (97.1 F) 04/27/2024 7:26 AM SHEAR SCRAPMAN Respiratory Rate 16 04/27/2024 7:26 AM SHEAR SCRAPMAN Oxygen Saturation 98% 04/27/2024 7:26 AM SHEAR SCRAPMAN Inhaled Oxygen Concentration - - Weight 83 kg (183 lb) 04/27/2024 7:26 AM SHEAR SCRAPMAN Height 162.6 cm (5' 4) 04/27/2024 7:26 AM SHEAR SCRAPMAN Body Mass Index 31.41 04/27/2024 7:26 AM SHEAR SCRAPMAN Plan of Treatment Upcoming Encounters Date Type Department Care Team (Late st Contact Info) Description 10/20/2024 1:00 PM CDT Office Visit [facility] - [place] [address] [place] [address] [facility] [address] [place] [address] Juan A Ly MD [address] [facility] [address] [place] [address] Arrived 11/02/2024 2:30 PM CDT Office Visit [facility] at [facility] [employer] [place] [address] [place] [address] Zakia Charles, ANP [address] [address] [facility] [address] [place] [address] Health Maintenance Due Date Last Done Comments HEPATITIS B VACCINES (1 of 3 - 19+ 3-dose series) 1996 HPV/Cotest (21-29) 1998 HPV/Cotest (30-65) 2007 FIT-DNA Q 3 years 2022 FIT/FOBT Q 1 year 2022 Flex Sig/CT Colonography Q 5 years 2022 COVID-19 Vaccine ( season) 2023, 12/23/2020 Pre-Diabetes and Diabetes Screening 01/19/202401/18 Preventative Visit- Commercial 02/26/2024 01/11/2021 INFLUENZA VACCINE (#1) 2024 11/07/2021, 2020 BREAST CANCER SCREENING 10/10/2024 10/11/2023 CERVICAL CANCER SCREENING 10/10/2026 PAP SMEAR 10/10/2026 10/11/2023 (Prev iously completed), 06/24/2020 (Previously completed), 12/10/2016 DTAP/TDAP/TD VACCINES (2 - T d or Tdap) 10/04/2031 10/03/2021 COLORECTAL SCREENING 07/02/2032 07/02/2022 Colorectal Cancer Screening 07/02/2032 Procedures Procedure Name Priority Date/Time Associated Diagnosis Comments HEMOGLOBIN A1C Routine 01/18/2021 7:14 AM SHEAR SCRAPMAN Encounter for routine adult health examination with abnormal findings from Last 3 Months or Most Recently Relevant to Health Maintenance Results * HEMOGLOBIN A1C (01/18/2021 7:14 AM SHEAR SCRAPMAN) HEMOGLOBIN A1C 5.1 <5.7 % of total Hgb [facility] Comment: For the purpose of screening for the presence of diabetes: <5.7% Consistent with the absence of diabetes 5.7-6.4% Consistent with increased risk for diabetes (prediabetes) > or =6.5% Consistent with diabetes This assay result is consistent with a decreased risk of diabetes. Currently, no consensus exists regarding use of hemoglobin A1c for diagnosis of diabetes in children. According to [place] [employer] Association (ADA) guidelines, hemoglobin A1c <7.0% represents optimal control in non- diabetic patients. Different metrics may apply to specific patient populations. Standards of Medical Care in Diabetes(ADA). Test Performed at: [facility] [address] [place] [address] Junaid Mtz D.O., MPH Blood 01/18/2021 7:14 AM SHEAR SCRAPMAN 01/19/2021 4:16 AM SHEAR SCRAPMAN us Dany Cardenas MD CHEMISTRY ORDERABLES Final R esult [facility] [address] [place] [address] from Last 3 Months or Most Recently Relevant to Health Maintenance Insurance ALLEGIANCE OPEN ACCESS ALLEGIAN OPEN ACCESS ALLEGIANCE OPEN ACCESS Care Teams Carbon Paper Machine Operator Relationship Specialty Start Date End Date Pearl Valera MD [address] [place] [address] [place] [address] PCP - General Internal Medicine 07/26/23
--- OUTSIDE RECORDS SUMMARY | 2024-10-20 12:41 | XMS_ITS | Encounter Summary ---
Author Organization [facility] [employer] [facility] Address [address] [place] [address] Care Team Providers Care Multimedia Services Coordinator Name Role Phone Pearl Valera MD Primary Care Provider [phone] Encounter Details Date Type Department Care Team (Late Contact Info) Description 10/19/2024 Orders Only [facility] [address] [place] [address] Juan A Ly MD [facility] [employer] [address] [place] [address] Leukocytosis, unspecified type (Primary Dx) Social History Tobacco Use Types Packs/Day Years Used Date Smoking Tobacco: Never Smokeless Tobacco: Never Alcohol Use Standard Drinks/Week Comments Not Currently 0 (1 standard drink = 0.6 oz pur e alcohol) I rarely drink Comments No Sex and Gender Information Value Date Recorded Sex Assigned at Not on file Legal Sex Female 11:00 AM PLASTICS FABRICATOR Gender Identity Not on file Sexual Orientation Not on file documented as of this encounter Plan of Treatment Upcoming Encounters Date Type Department Care Team (Late st Contact Info) Description 10/20/2024 1:00 PM CDT Office Visit [facility] [address] [place] [address] Juan A Ly MD [facility] [employer] [address] [place] [address] Arrived 11/02/2024 2:30 PM CDT Office Visit [facility] at [facility] [employer] [place] [address] [place] [address] Zakia Charles, ANP [id number] [facility] [address] [place] [address] Scheduled Orders Name Type Priority Associated Diagnoses Orde r Schedule BASIC METABOLIC PANEL Lab Routine Leukocytosis, unspecified type Expected: 10/19/2024, Expires: 10/19/2025 CBC WITH DIFFERENTIAL Lab Routine Leukocytosis, unspecified type Expected: 10/19/2024, Expires: 10/19/2025 documented as of this encounter Visit Diagnoses Diagnosis Leukocytosis, unspecified type- Primary documented in this encounter Additional Health Concerns Assessment Noted Time PHQ-9 Depression Total Score: 1 01/16/20 23 11:00 AM PLASTICS FABRICATOR documented as of this encounter Care Teams Multimedia Services Coordinator Relationship Specialty Start Date End Date Pearl Valera MD [address] [place] [id number] PCP - General Internal Medicine 07/26/23 documented as of this encounter
[2024-10-20 13:08] LABS: Hematocrit 35.9 % (37.0-47.0); Hemoglobin 12.1 g/dL (12.0-15.0); Immature Granulocyte Percent A 0.2 % (0-0.5); Lymphocytes Absolute Auto 2.32 K/mm3 (0.9-3.2); Mean Corpuscular HGB Conc 33.7 g/dl (32-36); Mean Corpuscular Hemoglobin 33.7 pg (26-34); Mean Corpuscular Volume 100.0 fl (80-100); Nucleated Red Blood Cells Absolute Auto 0.000 K/mm3 (0.0-0.012); Nucleated Red Blood Cells Perc 0.0 % (0.0-0.2); Platelet Count Result 190 k/mm3 (150-375); Red Blood Count 3.59 M/mm3 (4.2-5.4); White Blood Count 12.5 K/mm3 (4.5-10.0)
[2024-10-20 13:11] LABS: Blood Urea Nitrogen 21 mg/dL (8-26); Carbon Dioxide 29 mmol/L (22-30); Chloride 99 mmol/L (98-109); Estimated Glomerular Filt Rate 59; Glucose 92 mg/dL (70-105); Ionized Calcium (POC) 1.26 mmol/L (1.11-1.31); Potassium 3.9 mmol/L (3.5-4.9); Sodium 137 mmol/L (138-146)
== END 2024-10-20 12:39 | disposition home or self-care (01) ==
LOC: ANHLAB 12:39
PROVIDERS: PCP Obstetrics & Gynecology Gynecology; Visit Provider Internal Medicine Hematology & Oncology
DX: D72.829 Elevated white blood cell count, unspecified (principal)
CPT/HCPCS: 36415; 80047; 85025